=== PATIENT | female | born 1990 | race Caucasian/White ===

== ENCOUNTER 2018-04-25 08:04 | Emergency (ER) | payer BC ==
[2018-04-25] MEDS ORDERED: ONDANSETRON 4 MG/2 ML VIAL ONE (08:53)
[2018-04-25] MEDS ORDERED: FENTANYL CITR 100 MCG/2 ML ONE (08:53)
[2018-04-25] MEDS ORDERED: NA CHLORIDE 0.9% 1,000 ML ONE (08:53)
[2018-04-25 09:21] LABS: Absolute Monocytes 0.6 K/uL (0.1-1.3); Absolute Neutrophil 7.8 K/uL (1.8-8.0); Basophils % 0.4 % (0-1.3); Eosinophils % 2.1 % (0-4.4); Hematocrit 35.7 % (36.0-45.0); Lymphocytes % 19.1 % (15.3-44.8); MCH 31.7 pg (27.0-35.0); MCV 89.5 fL (80-100); MPV 8.5 fL (7.6-11.3); Monocytes % 5.4 % (3.3-12.3); RBC Red Blood Cell Count 3.99 M/uL (3.86-4.86)
[2018-04-25 09:30] LABS: Albumin 3.8 g/dL (3.4-5.0); Bilirubin Direct 0.2 mg/dL (0-0.2); Bilirubin Total 0.6 mg/dL (0.2-1.0); Potassium 3.4 mmol/L (3.5-5.1); Protein, Total 7.1 g/dL (6.4-8.2)
--- NOTE | 2018-04-25 10:34 | RAD REPORT ---
EXAM DESCRIPTION: CT - Abdomen Pelvis W Contrast - 04/25/2018 9:54 am CLINICAL HISTORY: Abdominal pain, cramping, vomiting, diarrhea, negative urinary test COMPARISON: None. TECHNIQUE: Biphasic, helical CT imaging of the abdomen and pelvis was performed following 100 ml non -ionic IV contrast. No oral contrast was given. All CT scans are performed using dose optimization technique as appropriate and may include automated exposure control or mA/KV adjustment according to patient size. FINDINGS: No suspicious findings in the lung bases. The liver, spleen, and pancreas show no suspicious findings. Gallbladder and biliary tree are also wi thout suspicious finding. Curvilinear hypointense focus in the posterior margin of the spleen is mitch eved to be a normal cleft and not splenic laceration. Symmetric renal function is seen with no hydronephrosis or suspicious renal mass. No pyelonephritis o r acute renal parenchymal process. No urinary bladder abnormality. No adrenal abnormality. No gastric dilatation or gastric wall thickening. No primary small bowel or colon process. Appendix i s not well defined. Acute appendicitis is not suspected. No free air or pneumatosis. Hemoperitoneum is present. There is fluid attenuation 30-40 Hounsfield u nit in value in the cul-de-sac and along each pericolic gutter. In the left adnexa there is a 6 x 5 c entimeter heterogeneous soft tissue mass most likely a hematoma. The mass effect deviates an otherwis e normal uterus to the right. A normal-size left ovary is seen anteriorly positioned. This would prob ably be outside of the field of view for an endovaginal ultrasound. Right ovary is obscured by fluid/ blood in the right adnexa. No fallopian tube dilatation suspected. No suspicious bony findings. IMPRESSION: Approximately 6 x 5 centimeter mass in the left adnexa abutting the left ovary. Hemoper itoneum is present in the cul-de-sac, bilateral adnexa and bilateral pericolic gutters. Hematoma and intraperitoneal hemorrhage is most commonly related to hemorrhagic ovarian or paraovaria n cyst. Hemorrhage related to a solid ovarian or paraovarian mass would be an additional consideratio n. A ruptured dermoid/teratoma can have this appearance. Appendix is not well defined. Acute appendicitis is not etiology for these findings not suspected.
[2018-04-25 10:37] LABS: Urine Blood 1+ (NEG); Urine Glucose NEGATIVE (NEG); Urine Protein NEGATIVE (NEG); Urine Specific Gravity 1.025 (1.005-1.030)
[2018-04-25 11:45] LABS: Hematocrit 32.2 % (36.0-45.0)
--- NOTE | 2018-04-25 12:15 | EDPHYS ---
Physician Documentation [facility] Name: Talya Esqueda Age: 28 yrs Sex: Female : 1990 Arrival Date: 04/25/2018 Time: 08:07 Bed 19 Private MD: ED Physician Teo Loyd HPI: 04/25 09:11 This 28 yrs old Female presents to ER via Ambulatory with complaints of kb Abdominal Pain, Abdominal Swelling, Nausea/Vomiting. 09:11 The patient presents with abdominal pain in the lower abdomen. Onset: The kb symptoms/episode began/occurred yesterday, at 15:00. The symptoms do not radiate. Associated signs and symptoms: Pertinent positives: nausea, vomiting, and diarrhea. The symptoms are described as constant. Modifying factors: The symptoms are alleviated by nothing, the symptoms are aggravated by pressure. Severity of pain: At its worst the pain was moderate in the emergency department the pain is unchanged. The patient has not experienced similar symptoms in the past. The patient has not recently seen a physician. ADMISSION DISCHARGE RN: 08:29 LMP 04/01/2018 iw Historical: - Allergies: 08:29 Codeine; iw 08:29 Latex, Natural Rubber; iw 08:29 Neomycin; iw 08:29 Sulfa (Sulfonamide Antibiotics); iw - Home Meds: 08:29 pantoprazole 40 mg oral TbEC 1 tab once daily [Active]; iw - PMHx: 08:29 acid reflux; iw - PSHx: 08:29 None; iw - Immunization history:: Adult Immunizations not up to date. - Social history:: Smoking status: Patient uses tobacco products, vape. - Ebola Screening: : Patient negative for fever greater than or equal to 101.5 degrees Fahrenheit, and additional compatible Ebola Virus Disease symptoms Patient denies exposure to infectious person Patient denies travel to an Ebola-affected area in the 21 days before illness onset No symptoms or risks identified at this time. ROS: 09:09 Constitutional: Negative for fever, chills, and weight loss, ENT: Negative for injury, kb pain, and discharge, Neck: Negative for injury, pain, and swelling, Cardiovascular: Negative for chest pain, palpitations, and edema, Respiratory: Negative for shortness of breath, cough, wheezing, and pleuritic chest pain, Back: Negative for injury and pain, : Negative for injury, bleeding, discharge, and swelling, MS/Extremity: Negative for injury and deformity, Skin: Negative for injury, rash, and discoloration, Neuro: Negative for headache, weakness, numbness, tingling, and seizure. 09:09 Abdomen/GI: Positive for abdominal pain, nausea, vomiting, and diarrhea, Negative for constipation, abdominal cramps, abdominal distension, anorexia. Exam: 09:09 Constitutional: This is a well developed, well nourished patient who is awake, alert, kb and in no acute distress. Head/Face: Normocephalic, atraumatic. Chest/axilla: Normal chest wall appearance and motion. Nontender with no deformity. No lesions are appreciated. Cardiovascular: Regular rate and rhythm with a normal S1 and S2. No gallops, murmurs, or rubs. Normal PMI, no JVD. No pulse deficits. Respiratory: Lungs have equal breath sounds bilaterally, clear to auscultation and percussion. No rales, rhonchi or wheezes noted. No increased work of breathing, no retractions or nasal flaring. Skin: Warm, dry with normal turgor. Normal color with no rashes, no lesions, and no evidence of cellulitis. MS/ Extremity: Pulses equal, no cyanosis. Neurovascular intact. Full, normal range of motion. Neuro: Awake and alert, GCS 15, oriented to person, place, time, and situation. Cranial nerves II-XII grossly intact. Motor strength 5/5 in all extremities. Sensory grossly intact. Cerebellar exam normal. Normal gait. 09:09 Abdomen/GI: Inspection: abdomen appears normal, Bowel sounds: normal, in all quadrants, Palpation: soft, in all quadrants, moderate abdominal tenderness, in the abdomen diffusely. Vital Signs: 08:29 BP 123 / 88; Pulse 88; Resp 16; Temp 98.2; Pulse Ox 100% on R/A; Weight 66.22 kg; iw Height 5 ft. 3 in. (160.02 cm); Pain 6/10; 09:31 BP 124 / 86; Pulse 83; Resp 14; Pulse Ox 100% on R/A; mh5 10:45 BP 118 / 85; Pulse 89; Resp 16; Pulse Ox 100% on R/A; Pain 8/10; em 11:25 BP 112 / 78; Pulse 85; Resp 16; Pulse Ox 97% on R/A; Pain 4/10; em 12:06 BP 117 / 74 Supine; Pulse 80; em 12:06 BP 115 / 83 Sitting; Pulse 83; em 12:06 BP 119 / 89 Standing; Pulse 89; em 08:29 Body Mass Index 25.86 (66.22 kg, 160.02 cm) iw MDM: 08:30 Patient medically screened. kb 09:09 Data reviewed: vital signs, nurses notes. Data interpreted: Pulse oximetry: on room air kb is 100 %. Interpretation: normal. 10:45 ED course: Discussed findings with Dr Loyd. Will repeat H\T\H in one hour.. kb 12:14 Counseling: I had a detailed discussion with the patient and/or guardian regarding: the kb historical points, exam findings, and any diagnostic results supporting the discharge/admit diagnosis, lab results, radiology results, the need for outpatient follow up, an OB/Gyne specialist, to return to the emergency department if symptoms worsen or persist or if there are any questions or concerns that arise at home. ED course: Discussed results with Dr Loyd. Pt to follow up with [facility] outpatient. 04/25 08:39 Order name: Amylase, Serum; Complete Time: 09:33 kb 04/25 08:39 Order name: Basic Metabolic Panel; Complete Time: 09:33 kb 04/25 08:39 Order name: CBC with Diff; Complete Time: 09:27 kb 04/25 08:39 Order name: Hepatic Function; Complete Time: 09:33 kb 04/25 08:39 Order name: Lipase; Complete Time: 09:33 kb 04/25 10:25 Order name: Urine Dipstick--Ancillary (enter results); Complete Time: 10:39 bd 04/25 08:39 Order name: Urine Test (obtain specimen); Complete Time: 09:07 kb 04/25 09:34 Order name: CT Abd/Pelvis - W/Contrast; Complete Time: 10:36 kb 04/25 10:25 Order name: Urine --Ancillary (enter results); Complete Time: 10:39 bd 04/25 11:31 Order name: Hemoglobin; Complete Time: 11:59 em 04/25 11:31 Order name: Hematocrit; Complete Time: 11:59 em 04/25 08:39 Order name: IV Saline Lock; Complete Time: 09:07 kb 04/25 08:39 Order name: Labs collected and sent; Complete Time: 09:07 kb 04/25 08:39 Order name: Urine Dipstick-Ancillary (obtain specimen); Complete Time: :07 kb Administered Medications: 09:06 Drug: fentaNYL (PF) 25 mcg Route: IVP; Site: right antecubital; iw 10:45 Follow up: Response: No adverse reaction; Pain is decreased em 09:06 Drug: Zofran 4 mg Route: IVP; Site: right antecubital; iw 10:46 Follow up: Response: No adverse reaction; Nausea is decreased em 09:06 Drug: NS 0.9% 1000 ml Route: IV; Rate: 1000 ml; Site: right antecubital; em 10:46 Follow up: IV Status: Completed infusion; IV Intake: 1000ml em Disposition: 04/26 09:15 Co-signature as Attending Physician, Teo Loyd MD I agree with the assessment and brittnee plan of care. Disposition: 04/25/18 12:15 Discharged to Home. Impression: Abdominal and pelvic pain, Unspecified ovarian cysts. - Condition is Stable. - Discharge Instructions: Ovarian Cyst, [id number]. - Prescriptions for Zofran 4 mg Oral Tablet - take 1 tablet by ORAL route every 6 hours As needed; 20 tablet. Diclofenac Sodium 75 mg Oral Tablet Sustained Release - take 1 tablet by ORAL route 2 times per day; 30 tablet. - Medication Reconciliation Form, Thank You Letter, Antibiotic Education, Prescription Opioid Use, Work release form form. - Follow up: Emergency Department; When: As needed; Reason: Worsening of condition. Follow up: Private Physician; When: 2 - 3 days; Reason: Recheck today's complaints, Continuance of care, Re-evaluation by your physician. Signatures: Dispatcher [employer] Rosa Isela Poon, AIDENC KARRIE-Teo Rendon MD MD cha Munoz, Edgar, FARM CREW LEADER FARM CREW LEADER em Amanda Rowland, JULIA RN iw Corrections: (The following items were deleted from the chart) 04/25 12:29 12:15 04/25/2018 12:15 Discharged to Home. Impression: Abdominal and pelvic pain; em Unspecified ovarian cysts. Condition is Stable. Forms are Medication Reconciliation Form, Thank You Letter, Antibiotic Education, Prescription Opioid Use. Follow up: Emergency Department; When: As needed; Reason: Worsening of condition. Follow up: Private Physician; When: 2 - 3 days; Reason: Recheck today's complaints, Continuance of care, Re-evaluation by your physician. kb
--- NOTE | 2018-04-25 12:15 | ER ---
Nurse's Notes [facility] Name: Talya Esqueda Age: 28 yrs Sex: Female : 1990 Arrival Date: 04/25/2018 Time: 08:07 Bed 19 Private MD: Diagnosis: Abdominal and pelvic pain;Unspecified ovarian cysts Presentation: 04/25 08:28 Presenting complaint: Patient states: low, mid abd pain, cramping, vomiting, diarrhea iw since yesterday, also has pain with urination. Transition of care: patient was not received from another setting of care. Onset of symptoms was April 24, 2018. Risk Assessment: Do you want to hurt yourself or someone else? Patient reports no desire to harm self or others. Initial Sepsis Screen: Does the patient meet any 2 criteria? No. Patient's initial sepsis screen is negative. Does the patient have a suspected source of infection? No. Patient's initial sepsis screen is negative. Care prior to arrival: None. 08:28 Method Of Arrival: Ambulatory iw 08:28 Acuity: ANJANA 3 iw GRINDER NEEDLE TIP: 08:29 LMP 04/01/2018 iw Historical: - Allergies: 08:29 Codeine; iw 08:29 Latex, Natural Rubber; iw 08:29 Neomycin; iw 08:29 Sulfa (Sulfonamide Antibiotics); iw - Home Meds: 08:29 pantoprazole 40 mg oral TbEC 1 tab once daily [Active]; iw - PMHx: 08:29 acid reflux; iw - PSHx: 08:29 None; iw - Immunization history:: Adult Immunizations not up to date. - Social history:: Smoking status: Patient uses tobacco products, vape. - Ebola Screening: : Patient negative for fever greater than or equal to 101.5 degrees Fahrenheit, and additional compatible Ebola Virus Disease symptoms Patient denies exposure to infectious person Patient denies travel to an Ebola-affected area in the 21 days before illness onset No symptoms or risks identified at this time. Screenin:38 Abuse screen: Denies threats or abuse. Nutritional screening: No deficits noted. em Tuberculosis screening: No symptoms or risk factors identified. Fall Risk None identified. Assessment: 09:00 General: Appears in no apparent distress. comfortable, Behavior is calm, cooperative. em Pain: Complains of pain in abdomen Pain currently is 7 out of 10 on a pain scale. Neuro: Level of Consciousness is awake, alert, obeys commands, Oriented to person, place, time, situation. Cardiovascular: Capillary refill < 3 seconds Patient's skin is warm and dry. Respiratory: Airway is patent Respiratory effort is even, unlabored, Respiratory pattern is regular, symmetrical. GI: Abdomen is round Bowel sounds present X 4 quads. Abd is soft X 4 quads Abdomen is tender to palpation X 4 quads. Reports diarrhea, nausea, vomiting. : Reports burning with urination. EENT: No signs and/or symptoms were reported regarding the EENT system. Derm: Skin is intact, Skin is pink, warm \T\ dry. Musculoskeletal: Range of motion: intact in all extremities. 09:10 Reassessment: Patient appears in no apparent distress at this time. I agree with above iw assessment by Andre Bryan LVN. 09:43 Reassessment: Patient appears in no apparent distress at this time. Patient and/or em family updated on plan of care and expected duration. Pain level reassessed. Patient is alert, oriented x 3, equal unlabored respirations, skin warm/dry/pink. rates pain 4/10 Patient states feeling better. Patient states symptoms have improved. 10:44 Reassessment: Patient appears in no apparent distress at this time. Patient and/or em family updated on plan of care and expected duration. Pain level reassessed. Patient is alert, oriented x 3, equal unlabored respirations, skin warm/dry/pink. rates pain 8/10, GABRIELA Natarajan notified, new medication orders received. 12:05 Reassessment: Patient appears in no apparent distress at this time. Patient and/or em family updated on plan of care and expected duration. Pain level reassessed. Patient is alert, oriented x 3, equal unlabored respirations, skin warm/dry/pink. rates pain 5/10 currently. Vital Signs: 08:29 BP 123 / 88; Pulse 88; Resp 16; Temp 98.2; Pulse Ox 100% on R/A; Weight 66.22 kg; iw Height 5 ft. 3 in. (160.02 cm); Pain 6/10; 09:31 BP 124 / 86; Pulse 83; Resp 14; Pulse Ox 100% on R/A; mh5 10:45 BP 118 / 85; Pulse 89; Resp 16; Pulse Ox 100% on R/A; Pain 8/10; em 11:25 BP 112 / 78; Pulse 85; Resp 16; Pulse Ox 97% on R/A; Pain 4/10; em 12:06 BP 117 / 74 Supine; Pulse 80; em 12:06 BP 115 / 83 Sitting; Pulse 83; em 12:06 BP 119 / 89 Standing; Pulse 89; em 08:29 Body Mass Index 25.86 (66.22 kg, 160.02 cm) iw ED Course: 08:07 Patient arrived in ED. mr 08:29 Triage completed. iw 08:29 Arm band placed on. iw 08:30 Rosa Isela Andrews FNP-C is PHCP. kb 08:30 Teo Loyd MD is Attending Physician. kb 08:45 Andre Bryan LVN is Primary Nurse. em 09:00 No provider procedures requiring assistance completed. Initial lab(s) drawn, by me, em sent to lab. Inserted saline lock: 20 gauge in right antecubital area, using aseptic technique. Blood collected. 09:38 Patient has correct armband on for positive identification. Placed in gown. Bed in low em position. Call light in reach. Adult w/ patient. Pulse ox on. NIBP on. 09:52 CT completed. Patient moved to CT via wheelchair. Patient moved back from CT. bq 09:54 CT Abd/Pelvis - W/Contrast In Process Unspecified. EDMS 10:26 Urine --Ancillary (enter results) Sent. mh5 10:26 Urine Dipstick--Ancillary (enter results) Sent. mh5 12:28 IV discontinued, intact, bleeding controlled, No redness/swelling at site. Pressure em dressing applied. Administered Medications: 09:06 Drug: fentaNYL (PF) 25 mcg Route: IVP; Site: right antecubital; iw 10:45 Follow up: Response: No adverse reaction; Pain is decreased em 09:06 Drug: Zofran 4 mg Route: IVP; Site: right antecubital; iw 10:46 Follow up: Response: No adverse reaction; Nausea is decreased em 09:06 Drug: NS 0.9% 1000 ml Route: IV; Rate: 1000 ml; Site: right antecubital; em 10:46 Follow up: IV Status: Completed infusion; IV Intake: 1000ml em Intake: 10:46 IV: 1000ml; Total: 1000ml. em Outcome: 12:15 Discharge ordered by MD. ortiz 12:28 Discharged to home ambulatory, with family. em 12:28 Condition: good 12:28 Discharge instructions given to patient, family, Instructed on discharge instructions, follow up and referral plans. medication usage, Demonstrated understanding of instructions, follow-up care, medications, Prescriptions given X 2. 12:29 Patient left the ED. em Signatures: Dispatcher [employer] EDRosa Isela Askew, SENIOR MEDIA DIRECTOR-C SENIOR MEDIA DIRECTOR-Parul Rush mr Racquel Reeves Edgar, BROKER IN CHARGE BROKER IN CHARGE em Amanda Rowland, RN RN Parul Guan [facility]
== END 2018-04-25 12:29 | disposition home or self-care (01) ==
LOC: ER 08:04
DX: R10.9 Unspecified abdominal pain (principal); R10.2 Pelvic and perineal pain; N83.209 Unspecified ovarian cyst, unspecified side; Z88.5 Allergy status to narcotic agent; Z88.2 Allergy status to sulfonamides; Z88.1 Allergy status to other antibiotic agents; Z91.040 Latex allergy status; F17.290 Nicotine dependence, other tobacco product, uncomplicated
CPT/HCPCS: 36415; 74177; 80048; 80076; 81003; 81025; 82150; 83690; 85014; 85018; 85025; 96361; 96374; 96375; 99284; J2405; J3010; J7030; Q9967